=== PATIENT | female | born 1990 | race Caucasian/White ===

== ENCOUNTER 2018-01-28 21:32 | Inpatient (IN) | payer BC ==
[2018-01-28] MEDS ORDERED: Nalbuphine 10 MG/1 ML Vial IVPUSH PRN (21:56)
[2018-01-28] MEDS ORDERED: Butorphanol 1 MG/ML SDV IVPUSH PRN (21:56)
[2018-01-28] MEDS ORDERED: Water For Irrigation,Sterile 1,000 ML Container IRR PRN (21:56)
[2018-01-28] MEDS ORDERED: Terbutaline 1 MG/ML SDV SUBCUT PRN (21:56)
[2018-01-28] MEDS ORDERED: Misoprostol 25 MCG (1/4 of 100 MCG) Tab VAG PRN (21:56)
[2018-01-28] MEDS ORDERED: Misoprostol 200 MCG Tab PO PRN (21:56)
[2018-01-28] MEDS ORDERED: Sodium Chloride 0.9% 2.5 ML Syringe FLUSH PRN (21:56)
[2018-01-28] MEDS ORDERED: Carboprost Tromethamine 250 MCG/1 ML Amp IM PRN (21:56)
[2018-01-28] MEDS ORDERED: Tranexamic Acid 1,000 MG in Sodium Chloride 0.9% 100 ML IV PRN (21:56)
[2018-01-28] MEDS ORDERED: Sodium Chloride 0.9% 10 ML Syringe FLUSH PRN (21:56)
[2018-01-28] MEDS ORDERED: Ampicillin 2 GM in Sodium Chloride 0.9% 100 ML IV ONE (21:56)
[2018-01-28] MEDS ORDERED: Lidocaine 1% 50 ML MDV INJECT PRN (21:56)
[2018-01-28] MEDS ORDERED: Methylergonovine 0.2 MG/1 ML Amp IM PRN (21:56)
[2018-01-28] MEDS ORDERED: Misoprostol 25 MCG (1/4 of 100 MCG) Tab VAG SCH (22:00)
[2018-01-28] MEDS ORDERED: Oxytocin/0.9 % Sodium Chloride 30 UNIT/500 ML BAG IV SCH ×2 (22:00)
[2018-01-28] MEDS: Lactated Ringers 1,000 ML IV SCH (22:15)
[2018-01-29] MEDS ORDERED: Misoprostol 25 MCG (1/4 of 100 MCG) Tab PO ONE (07:40)
[2018-01-29] MEDS ORDERED: Misoprostol 25 MCG (1/4 of 100 MCG) Tab ONE (07:45)
[2018-01-29] MEDS: Ampicillin 1 GM in Sodium Chloride 0.9% 50 ML IV SCH ×3 (09:50→15:29)
[2018-01-29] MEDS ORDERED: fentaNYL 100 MCG/2 ML SDV ONE (13:31)
[2018-01-29] MEDS ORDERED: Ropivacaine 0.2% 2 MG/ML 20 ML SDV ONE (13:32)
--- NOTE | 2018-01-29 14:20 | PCM.PREANE ---
Preanesthetic Assessment - Procedure Proposed Procedure: labor epidural - Anesthesia/Transfusion/Family Hx Anesthesia History: Prior Anesthesia Without Reaction (t/a, epidural,wisdom teeth) Family History of Anesthesia Reaction: No Transfusion History: No Prior Transfusion(s) - Review of Systems General: No Symptoms Pulmonary: No Symptoms Cardiovascular: No Symptoms Gastrointestinal: No Symptoms Neurological: No Symptoms Other: Reports: Diabetes (gestational,blood sugars are in the 80s recently) - Physical Assessment NPO Status Date: 01/29/18 NPO Status Time: 14:19 (cl. liq) Height: 1.7 m Weight: 91.172 kg ASA Class: 2 Mental Status: Alert & Oriented x3 Airway Class: Mallampati = 1 Dentition: Reports: Normal Dentition Thyro-Mental Finger Breadths: 3 Mouth Opening Finger Breadths: 3 ROM/Head Extension: Full Lungs: Clear to Auscultation, Normal Respiratory Effort Cardiovascular: Regular Rate, Regular Rhythm - Lab Values: Laboratory Last Values WBC 10.95 K/uL (4.0-11.0) 01/28/18 21:15 RBC 4.83 M/uL (4.30-5.90) 01/28/18 21:15 Hgb 12.9 g/dL (12.0-16.0) 01/28/18 21:15 Hct 38.7 % (36.0-46.0) 01/28/18 21:15 MCV 80.1 fL (80.0-98.0) 01/28/18 21:15 MCH 26.7 pg (27.0-32.0) L 01/28/18 21:15 MCHC 33.3 g/dL (31.0-37.0) 01/28/18 21:15 RDW Std Deviation 44.4 fl (28.0-62.0) 01/28/18 21:15 RDW Coeff of Wilfred 15 % (11.0-15.0) 01/28/18 21:15 Plt Count 241 K/uL (150-400) 01/28/18 21:15 MPV 9.30 fL (7.40-12.00) 01/28/18 21:15 Nucleated RBC % 0.0 /100WBC 01/28/18 21:15 Nucleated RBCs # 0 K/uL 01/28/18 21:15 POC Glucose 80 mg/dL (60-110) 01/29/18 05:47 Blood Type B POSITIVE 01/28/18 21:15 Antibody Screen NEGATIVE 01/28/18 21:15 - Allergies Allergies/Adverse Reactions: Allergies Allergy/AdvReac Type Severity Reaction Status Date / Time No Known Allergies Allergy Verified 01/28/18 21:53 - Blood Blood Available: Yes Product(s) Available: PRBC - Anesthesia Plan Pre-Op Medication Ordered: None - Acknowledgements Anesthesia Type Planned: Epidural Pt an Appropriate Candidate for the Planned Anesthesia: Yes Alternatives and Risks of Anesthesia Discussed w Pt/Guardian: Yes Pt/Guardian Understands and Agrees with Anesthesia Plan: Yes PreAnesthesia Questionnaire - Past Health History Medical/Surgical History: Denies Medical/Surgical History HEENT History: Reports: Impaired Vision Respiratory History: Reports: Other (See Below) Other Respiratory History: T & A removal at approx 8 years BODY PRESSER History: Reports: Endocrine/Metabolic History: Reports: Diabetes, Gestational - Past Surgical History HEENT Surgical History: Reports: Tonsillectomy - SUBSTANCE USE Smoking Status *Q: Never Smoker Tobacco Use Within Last Twelve Months: No Second Hand Smoke Exposure: No Recreational Drug Use History: No - HOME MEDS Home Medications: Home Meds Acetaminophen [Tylenol Extra Strength] 1,000 mg PO Q4H PRN #30 tablet 12/31/15 [ Rx] Aspirin [Adult Low Dose Aspirin EC] 81 mg PO 01/28/18 [History] Vit W-Ca,Fe,FA(<1 mg) [ Vitamins] 1 tab PO DAILY 01/28/18 [ History] - CURRENT (IN HOUSE) MEDS Current Meds: Current Medications Butorphanol Tartrate (Stadol) 1 mg IVPUSH Q1H PRN PRN Reason: Pain Carboprost Tromethamine (Hemabate Ds) 250 mcg IM ASDIRECTED PRN PRN Reason: Post Hemorrhage Lactated Ringer's (Ringers, Lactated) 1,000 mls @ 150 mls/hr IV ASDIRECTED KARON Last Admin: 01/28/18 22:15 Dose: 999 mls/hr Oxytocin/Sodium Chloride (Oxytocin 30 Unit/500 Ml-Ns) 30 unit in 500 mls @ 500 mls/hr IV TITRATE KARON Oxytocin/Sodium Chloride (Oxytocin 30 Unit/500 Ml-Ns) 30 unit in 500 mls @ 2 mls/hr IV TITRATE K[facility]ON; Protocol Last Titration: 01/29/18 13:07 Dose: 6 munits/min, 6 mls/hr Tranexamic Acid 1,000 mg/ (Sodium Chloride) 110 mls @ 660 mls/hr IV ONETIME PRN PRN Reason: Bleeding Ampicillin Sodium 1 gm/ Sodium (Chloride) 50 mls @ 100 mls/hr IV Q4H [facility] Last Admin: 01/29/18 11:34 Dose: 100 mls/hr Lidocaine HCl (Xylocaine 1%) 50 ml INJECT .ONCE PRN PRN Reason: Laceration repair Methylergonovine Maleate (Methergine) 0.2 mg IM ASDIRECTED PRN PRN Reason: Post Hemorrhage Misoprostol (Cytotec) 200 mcg PO .ONCE PRN PRN Reason: Post Hemorrhage Misoprostol (Cytotec) 25 mcg VAG .ONCE KARON Last Admin: 01/28/18 23:35 Dose: 25 mcg Misoprostol (Cytotec) 25 mcg VAG Q4H PRN PRN Reason: Cervical Ripening Nalbuphine HCl (Nubain) 10 mg IVPUSH Q1H PRN PRN Reason: Pain (severe 7-10) Sodium Chloride (Saline Flush) 10 ml FLUSH ASDIRECTED PRN PRN Reason: Keep Vein Open Sodium Chloride (Saline Flush) 2.5 ml FLUSH ASDIRECTED PRN PRN Reason: Keep Vein Open Sterile Water (Sterile Water For Irrigation) 1,000 ml IRR ASDIRECTED PRN PRN Reason: delivery Terbutaline Sulfate (Brethine) 0.25 mg SUBCUT ASDIRECTED PRN PRN Reason: Tacysystole Discontinued Medications Fentanyl (Sublimaze) Confirm Administered Dose 100 mcg .ROUTE .STK-MED ONE Stop: 01/29/18 13:32 Ampicillin Sodium 2 gm/ Sodium (Chloride) 100 mls @ 200 mls/hr IV ONETIME ONE Stop: 01/28/18 22:25 Last Admin: 01/28/18 23:38 Dose: 200 mls/hr Fentanyl/Bupivacaine HCl (Whsxsazp-Gknvr-Jj 2 Mcg/Ml-0.125%) Confirm Administered Dose 100 mls @ as directed EP .STK-MED ONE Stop: 01/29/18 13:32 Misoprostol (Cytotec) Confirm Administered Dose 25 mcg .ROUTE .STK-MED ONE Stop: 01/29/18 07:46 Last Admin: 01/29/18 09:51 Dose: Not Given Misoprostol (Cytotec) 25 mcg PO ONETIME ONE Stop: 01/29/18 07:41 Last Admin: 01/29/18 09:52 Dose: Not Given Ropivacaine (Naropin 0.2%) Confirm Administered Dose 20 ml .ROUTE .STK-MED ONE Stop: 01/29/18 13:33
--- NOTE | 2018-01-29 14:28 | PCM.PRNOTE ---
- Free Text/Narrative Note: called to see patient for placement of epidural. Patient identified and health history and consent reviewed. Discussed risks including nerve pain, nerve damage , bleeding and infection. Pt agrees to proceed. sitting up, sterile betadine prep times 3. 1% lidocaine injected SQ at L3, #17 touhy advanced with os found at 3 cm. Needle redirected ANNIE saline no heme, no paresthesia. catheter easily placed approximately 7 cm. catheter taped at 14cm skin. test dose 3 ml 1.5% lidocaine with epinephrine 1:200,000 negative reaction. bolus of 0.2% ropivicaine with 100 mcg fentanyl given 8 ml over 10 minutes. No complications notedpain score now 0/10 with level noted to be t 10 bilat with cold sensation. 0.125% bupivicaine with fentanyl 2 mcg/ml started at 9 ml/hr with PCEA bolus of 6ml every 10 minutes, hourly of 32 ml. No complications noted
[2018-01-29] MEDS: Lactated Ringers 1,000 ML IV SCH (15:00)
[2018-01-29] MEDS ORDERED: Acetaminophen 500 MG Tab PO PRN ×2 (18:13)
[2018-01-29] MEDS ORDERED: Bisacodyl 10 MG Supp RECTAL PRN (18:13)
[2018-01-29] MEDS ORDERED: oxyCODONE 5 MG Tab PO PRN (18:13)
[2018-01-29] MEDS ORDERED: Lanolin 100% Cream 7 GM Tube TOP PRN (18:13)
[2018-01-29] MEDS ORDERED: Ibuprofen 800 MG Tab PO PRN (18:13)
[2018-01-29] MEDS ORDERED: Docusate Sodium 100 MG Cap PO PRN (18:13)
[2018-01-29] MEDS ORDERED: Ibuprofen 400 MG Tab PO PRN (18:13)
[2018-01-29] MEDS ORDERED: Benzocaine/Menthol 20%-0.5% Spray 78 GM Cannister TOP PRN (18:13)
[2018-01-29] MEDS ORDERED: Witch Hazel Medicated Pads 40/Jar TOP PRN (18:13)
--- NOTE | 2018-01-29 19:43 | PCM48HPAN ---
Post Anesthesia Note - EVALUATION WITHIN 48HRS OF ANESTHETIC Vital Signs in Normal Range: Yes Patient Participated in Evaluation: Yes Respiratory Function Stable: Yes Airway Patent: Yes Cardiovascular Function Stable: Yes Hydration Status Stable: Yes Pain Control Satisfactory: Yes Nausea and Vomiting Control Satisfactory: Yes Mental Status Recovered: Yes
--- NOTE | 2018-01-30 08:18 | OR ---
SURGEON: Sujey Carter MD DATE OF PROCEDURE: 01/29/2018 PREOPERATIVE DIAGNOSES: 1. Term at 39 weeks and 3 days. 2. Oligohydramnios. 3. Gestational diabetes, diet controlled. POSTOPERATIVE DIAGNOSES: 1. Term at 39 weeks and 3 days. 2. Oligohydramnios. 3. Gestational diabetes, diet controlled. 4. Delivered. PROCEDURES: 1. Spontaneous vaginal delivery. 2. Repair of perineal laceration. ANESTHESIA: Epidural. ESTIMATED BLOOD LOSS: 200 mL. COMPLICATIONS: None. DISPOSITION: Mother and baby stable in Labor and Delivery room, bonding. FINDINGS: Female infant, weight pending, scores of 8 and 8 at 1 and 5 minutes respectively. Grossly normal placenta with 3-vessel cord. First-degree vaginal laceration. PROCEDURE DETAILS: The patient is a 27-year-old, G2, P1, who was admitted overnight at 38 weeks and 1 day gestation for induction of labor secondary to oligohydramnios, found during her routine visit yesterday, with a biophysical profile of 8/ 10. Her is also complicated by gestational diabetes, adequately controlled on diet. Her GBS status was positive. On admission, she received two doses of Cytotec 25 mcg for cervical ripening, and oxytocin titration was commenced later this morning. Prophylactic Ampicillin was given for GBS prophylaxis. Artificial rupture of membranes was performed around 12:30 this afternoon. At that time, she was 3 to 4 cm dilated, 80% effaced, station -2. Scanty amount of clear fluid was returned. An IUPC was inserted in case it was needed at a later stage for amnioinfusion if indicated. At that time, her oxytocin was at 4 milliunits per minute. She made steady progress and became fully dilated little after 5:00 this evening, on a maximum dose of Pitocin of 10 milliunits per minute. With increasing rectal pressure, active second stage was commenced, she pushed quite well, bringing the baby's head down to a +4 station and was set up for delivery in a modified dorsolithotomy position. heart racing remained a category I. Her admission blood sugar was normal. She pushed for approximately 10 minutes and had a spontaneous vaginal delivery of a live female in direct occipital anterior position, loose nuchal cord x, easily reduced with clear amniotic fluid at delivery. Anterior and posterior shoulders and the rest of the baby were delivered without difficulty. The baby was vigorous at , delivered onto the maternal abdomen. Delayed cord clamping was observed, and the cord was subsequently cut by the father of the baby. With delivery of the , oxytocin infusion was changed to titration for active management of third stage of labor. Cord blood and gas samples were obtained. The placenta was delivered by controlled cord traction, appeared to be complete and intact. Examination of the perineum revealed a small first-degree vaginal laceration, which was repaired with 2-0 Polysorb and was hemostatic post repair. Uterine massage was performed. The uterus was found to contract with massage but boggy inbetween with little trickles of blood vaginally. Some clots were evacuated from the lower uterine segment. Also, of note was that the patient's oxytocin infusion was not titrating as fast as it should for , so she received one dose of methargen 0.25 mg to further enhance uterine contraction. After this was performed, the trickle subsided, and the uterus was well contracted. The patient tolerated the procedure well. Sponge, instrument, and needle counts were correct at the end of the delivery. ADUMVIV / MODL /[id number] MTDD
--- NOTE | 2018-01-30 09:15 | PCM.PNPP ---
- General Info Date of Service: 01/30/18 Functional Status: Reports: Pain Controlled, Tolerating Diet, Ambulating, Urinating - Review of Systems General: Denies: Fever, Malaise HEENT: Denies: Headaches, Visual Changes Pulmonary: Denies: Shortness of Breath, Pleuritic Chest Pain Cardiovascular: Denies: Chest Pain, Palpitations, Dyspnea on Exertion Gastrointestinal: Denies: Abdominal Pain Genitourinary: Denies: Dysuria, Incontinence - General Info Date of Service: 01/30/18 - Patient Data Vital Signs - Most Recent: Last Vital Signs Temp 36.6 C 01/30/18 04:15 Pulse 80 01/30/18 04:15 Resp 18 01/30/18 04:15 BP 118/80 01/30/18 04:15 Pulse Ox 96 01/30/18 04:15 Weight - Most Recent: 201 lb Lab Results - Last 24 Hours: Laboratory Results - last 24 hr 01/29/18 01/30/18 Range/Units 17:46 05:10 Hgb 11.6 L (12.0-16.0) g/dL Hct 35.5 L (36.0-46.0) % Cord ABG pH 7.270 (7.18-7.38) Cord ABG Base Excess -4 (-10--2) Cord VBG pH 7.405 (7.25-7.45) Cord VBG Base Excess -3 (-10--2) Med Orders - Current: Current Medications Acetaminophen (Tylenol Extra Strength) 500 mg PO Q4H PRN PRN Reason: Pain Acetaminophen (Tylenol Extra Strength) 1,000 mg PO Q4H PRN PRN Reason: Pain Benzocaine/Menthol (Dermoplast Pain Relief 20%-0.5% [place]) 0 gm TOP ASDIRECTED PRN PRN Reason: Perineal Comfort Measure Last Admin: 01/29/18 20:47 Dose: 1 canister Bisacodyl (Dulcolax) 10 mg RECTAL .ONCE PRN PRN Reason: Constipation Docusate Sodium (Colace) 100 mg PO BID PRN PRN Reason: Constipation Emollient Ointment (Lansinoh Hpa) 0 gm TOP ASDIRECTED PRN PRN Reason: Sore Nipples Last Admin: 01/29/18 20:47 Dose: 1 tube Ibuprofen (Motrin) 400 mg PO Q4H PRN PRN Reason: Pain Ibuprofen (Motrin) 800 mg PO Q6H PRN PRN Reason: Pain Last Admin: 01/29/18 20:47 Dose: 800 mg Oxycodone HCl (Oxycodone) 5 mg PO Q2H PRN PRN Reason: Pain Witch Rupali (Tucks) 1 pad TOP ASDIRECTED PRN PRN Reason: comfort care Last Admin: 01/29/18 20:47 Dose: 1 tub Discontinued Medications Butorphanol Tartrate (Stadol) 1 mg IVPUSH Q1H PRN PRN Reason: Pain Carboprost Tromethamine (Hemabate Ds) 250 mcg IM ASDIRECTED PRN PRN Reason: Post Hemorrhage Fentanyl (Sublimaze) Confirm Administered Dose 100 mcg .ROUTE .STK-MED ONE Stop: 01/29/18 13:32 Last Admin: 01/29/18 21:23 Dose: Not Given Ampicillin Sodium 2 gm/ Sodium (Chloride) 100 mls @ 200 mls/hr IV ONETIME ONE Stop: 01/28/18 22:25 Last Admin: 01/28/18 23:38 Dose: 200 mls/hr Lactated Ringer's (Ringers, Lactated) 1,000 mls @ 150 mls/hr IV ASDIRECTED KARON Last Admin: 01/29/18 15:00 Dose: 500 mls/hr Oxytocin/Sodium Chloride (Oxytocin 30 Unit/500 Ml-Ns) 30 unit in 500 mls @ 500 mls/hr IV TITRATE KARON Oxytocin/Sodium Chloride (Oxytocin 30 Unit/500 Ml-Ns) 30 unit in 500 mls @ 2 mls/hr IV TITRATE [facility]; Protocol Last Titration: 01/29/18 17:05 Dose: 10 munits/min, 10 mls/hr Tranexamic Acid 1,000 mg/ (Sodium Chloride) 110 mls @ 660 mls/hr IV ONETIME PRN PRN Reason: Bleeding Ampicillin Sodium 1 gm/ Sodium (Chloride) 50 mls @ 100 mls/hr IV Q4H [facility] Last Admin: 01/29/18 15:29 Dose: 100 mls/hr Fentanyl/Bupivacaine HCl (Toshnrim-Glqed-Rf 2 Mcg/Ml-0.125%) Confirm Administered Dose 100 mls @ as directed EP .STK-MED ONE Stop: 01/29/18 13:32 Last Admin: 01/29/18 21:21 Dose: Not Given Lidocaine HCl (Xylocaine 1%) 50 ml INJECT .ONCE PRN PRN Reason: Laceration repair Methylergonovine Maleate (Methergine) 0.2 mg IM ASDIRECTED PRN PRN Reason: Post Hemorrhage Last Admin: 01/29/18 18:10 Dose: 0.2 mg Misoprostol (Cytotec) 200 mcg PO .ONCE PRN PRN Reason: Post Hemorrhage Misoprostol (Cytotec) 25 mcg VAG .ONCE KARON Last Admin: 01/28/18 23:35 Dose: 25 mcg Misoprostol (Cytotec) 25 mcg VAG Q4H PRN PRN Reason: Cervical Ripening Misoprostol (Cytotec) Confirm Administered Dose 25 mcg .ROUTE .STK-MED ONE Stop: 01/29/18 07:46 Last Admin: 01/29/18 09:51 Dose: Not Given Misoprostol (Cytotec) 25 mcg PO ONETIME ONE Stop: 01/29/18 07:41 Last Admin: 01/29/18 09:52 Dose: Not Given Nalbuphine HCl (Nubain) 10 mg IVPUSH Q1H PRN PRN Reason: Pain (severe 7-10) Ropivacaine (Naropin 0.2%) Confirm Administered Dose 20 ml .ROUTE .STK-MED ONE Stop: 01/29/18 13:33 Last Admin: 01/29/18 21:23 Dose: Not Given Sodium Chloride (Saline Flush) 10 ml FLUSH ASDIRECTED PRN PRN Reason: Keep Vein Open Sodium Chloride (Saline Flush) 2.5 ml FLUSH ASDIRECTED PRN PRN Reason: Keep Vein Open Sterile Water (Sterile Water For Irrigation) 1,000 ml IRR ASDIRECTED PRN PRN Reason: delivery Last Admin: 01/29/18 17:00 Dose: 1,000 ml Terbutaline Sulfate (Brethine) 0.25 mg SUBCUT ASDIRECTED PRN PRN Reason: Tacysystole - Interaction Disposition, : in Room with Family Interaction: Holding Infant Feeding: Attempted ; Nursed Fair/Poor (supplementing), Continues to Breastfeed Support Person: - Recovery Exam Fundal Tone: Firm Fundal Level: 1 Fingerbreadths Below Umbilicus Fundal Placement: Midline Lochia Amount: Scant Lochia Color: Rubra/Red Perineum Description: Other (see below) Other Perinuem Description: 1st degree laceration Episiotomy/Laceration: Approximated Bladder Status: Voiding - Exam General: Alert, Oriented HEENT: Pupils Equal Lungs: Clear to Auscultation, Normal Respiratory Effort Cardiovascular: Regular Rate, Regular Rhythm GI/Abdominal Exam: Normal Bowel Sounds Extremities: Non-Tender, Pedal Edema Skin: Warm Psy/Mental Status: Alert, Normal Affect, Normal Mood - Problem List & Annotations (1) Vaginal delivery SNOMED Code(s): 974000352 Code(s): O80 - ENCOUNTER FOR FULL-TERM UNCOMPLICATED DELIVERY Status: Acute Current Visit: No (2) Gestational diabetes mellitus (GDM), delivered SNOMED Code(s): 34332260 Code(s): O24.429 - GESTATIONAL DIABETES MELLITUS IN CHILDBIRTH, UNSP CONTROL Status: Acute Current Visit: Yes - Problem List Review Problem List Initiated/Reviewed/Updated: Yes - My Orders Last 24 Hours: My Active Orders 01/29/18 18:13 Patient Status [ADT] Routine May Shower [RC] ASDIRECTED Up ad Hoda [RC] ASDIRECTED Vital Signs [RC] PER UNIT ROUTINE Acetaminophen [Tylenol Extra Strength] 1,000 mg PO Q4H PRN Acetaminophen [Tylenol Extra Strength] 500 mg PO Q4H PRN Benzocaine/Menthol [Dermoplast Pain Relief 20%-0.5% [place]] 0 gm TOP ASDIRECTED PRN Bisacodyl [Dulcolax] 10 mg RECTAL .ONCE PRN Docusate Sodium [Colace] 100 mg PO BID PRN Ibuprofen [Motrin] 400 mg PO Q4H PRN Ibuprofen [Motrin] 800 mg PO Q6H PRN Lanolin [Lansinoh HPA] See Dose Instructions TOP ASDIRECTED PRN Witch Rupali [Tucks] 1 pad TOP ASDIRECTED PRN oxyCODONE 5 mg PO Q2H PRN Assess Lochia [WOMSER] Per Unit Routine Assess Uterine Involution [WOMSER] Per Unit Routine Breast Pump [WOMSER] Per Unit Routine Peripheral IV Discontinue [OM.PC] Routine Resuscitation Status Routine 01/29/18 18:14 Perineal Care [OM.PC] Per Unit Routine 01/30/18 Breakfast Regular Diet [DIET] - Assessment Assessment:: PPD#1 s/p , stable and afebrile Considering discharge later this evening id improves - Plan Plan:: Patient may be discharged later this evening is baby is doing well with feeding Discharge instructions were reviewed Nothing in the vagina in 6 weeks Bleeding and infection precautions discussed S/S of blues vs depression were reviewed Follow up appt in 6 weeks
--- NOTE | 2018-01-31 08:17 | PCM.PNPP ---
<Janie Terrazas - Last Filed: 01/31/18 08:14> - General Info Date of Service: 01/31/18 Functional Status: Reports: Pain Controlled, Tolerating Diet, Ambulating, Urinating - Review of Systems General: Denies: Fever, Weakness, Fatigue Pulmonary: Denies: Shortness of Breath, Pleuritic Chest Pain, Cough Cardiovascular: Denies: Chest Pain, Palpitations, Dyspnea on Exertion Gastrointestinal: Denies: Abdominal Pain Genitourinary: Denies: Dysuria - General Info Date of Service: 01/31/18 - Patient Data Vital Signs - Most Recent: Last Vital Signs Temp 36.4 C 01/30/18 20:00 Pulse 80 01/30/18 20:00 Resp 20 01/30/18 20:00 BP 121/82 01/30/18 20:00 Pulse Ox 99 01/30/18 20:00 Weight - Most Recent: 201 lb Med Orders - Current: Current Medications Acetaminophen (Tylenol Extra Strength) 500 mg PO Q4H PRN PRN Reason: Pain Acetaminophen (Tylenol Extra Strength) 1,000 mg PO Q4H PRN PRN Reason: Pain Benzocaine/Menthol (Dermoplast Pain Relief 20%-0.5% [place]) 0 gm TOP ASDIRECTED PRN PRN Reason: Perineal Comfort Measure Last Admin: 01/29/18 20:47 Dose: 1 canister Bisacodyl (Dulcolax) 10 mg RECTAL .ONCE PRN PRN Reason: Constipation Docusate Sodium (Colace) 100 mg PO BID PRN PRN Reason: Constipation Last Admin: 01/30/18 21:40 Dose: 100 mg Emollient Ointment (Lansinoh Hpa) 0 gm TOP ASDIRECTED PRN PRN Reason: Sore Nipples Last Admin: 01/29/18 20:47 Dose: 1 tube Ibuprofen (Motrin) 400 mg PO Q4H PRN PRN Reason: Pain Ibuprofen (Motrin) 800 mg PO Q6H PRN PRN Reason: Pain Last Admin: 01/29/18 20:47 Dose: 800 mg Oxycodone HCl (Oxycodone) 5 mg PO Q2H PRN PRN Reason: Pain Witch Rupali (Tucks) 1 pad TOP ASDIRECTED PRN PRN Reason: comfort care Last Admin: 01/29/18 20:47 Dose: 1 tub Discontinued Medications Butorphanol Tartrate (Stadol) 1 mg IVPUSH Q1H PRN PRN Reason: Pain Carboprost Tromethamine (Hemabate Ds) 250 mcg IM ASDIRECTED PRN PRN Reason: Post Hemorrhage Fentanyl (Sublimaze) Confirm Administered Dose 100 mcg .ROUTE .STK-MED ONE Stop: 01/29/18 13:32 Last Admin: 01/29/18 21:23 Dose: Not Given Ampicillin Sodium 2 gm/ Sodium (Chloride) 100 mls @ 200 mls/hr IV ONETIME ONE Stop: 01/28/18 22:25 Last Admin: 01/28/18 23:38 Dose: 200 mls/hr Lactated Ringer's (Ringers, Lactated) 1,000 mls @ 150 mls/hr IV ASDIRECTED KARON Last Admin: 01/29/18 15:00 Dose: 500 mls/hr Oxytocin/Sodium Chloride (Oxytocin 30 Unit/500 Ml-Ns) 30 unit in 500 mls @ 500 mls/hr IV TITRATE KARON Oxytocin/Sodium Chloride (Oxytocin 30 Unit/500 Ml-Ns) 30 unit in 500 mls @ 2 mls/hr IV TITRATE KARON; Protocol Last Titration: 01/29/18 17:05 Dose: 10 munits/min, 10 mls/hr Tranexamic Acid 1,000 mg/ (Sodium Chloride) 110 mls @ 660 mls/hr IV ONETIME PRN PRN Reason: Bleeding Ampicillin Sodium 1 gm/ Sodium (Chloride) 50 mls @ 100 mls/hr IV Q4H [facility] Last Admin: 01/29/18 15:29 Dose: 100 mls/hr Fentanyl/Bupivacaine HCl ([id number]-Dxawo-Xe 2 Mcg/Ml-0.125%) Confirm Administered Dose 100 mls @ as directed EP .STK-MED ONE Stop: 01/29/18 13:32 Last Admin: 01/29/18 21:21 Dose: Not Given Lidocaine HCl (Xylocaine 1%) 50 ml INJECT .ONCE PRN PRN Reason: Laceration repair Methylergonovine Maleate (Methergine) 0.2 mg IM ASDIRECTED PRN PRN Reason: Post Hemorrhage Last Admin: 01/29/18 18:10 Dose: 0.2 mg Misoprostol (Cytotec) 200 mcg PO .ONCE PRN PRN Reason: Post Hemorrhage Misoprostol (Cytotec) 25 mcg VAG .ONCE KARON Last Admin: 01/28/18 23:35 Dose: 25 mcg Misoprostol (Cytotec) 25 mcg VAG Q4H PRN PRN Reason: Cervical Ripening Misoprostol (Cytotec) Confirm Administered Dose 25 mcg .ROUTE .STK-MED ONE Stop: 01/29/18 07:46 Last Admin: 01/29/18 09:51 Dose: Not Given Misoprostol (Cytotec) 25 mcg PO ONETIME ONE Stop: 01/29/18 07:41 Last Admin: 01/29/18 09:52 Dose: Not Given Nalbuphine HCl (Nubain) 10 mg IVPUSH Q1H PRN PRN Reason: Pain (severe 7-10) Ropivacaine (Naropin 0.2%) Confirm Administered Dose 20 ml .ROUTE .STK-MED ONE Stop: 01/29/18 13:33 Last Admin: 01/29/18 21:23 Dose: Not Given Sodium Chloride (Saline Flush) 10 ml FLUSH ASDIRECTED PRN PRN Reason: Keep Vein Open Sodium Chloride (Saline Flush) 2.5 ml FLUSH ASDIRECTED PRN PRN Reason: Keep Vein Open Sterile Water (Sterile Water For Irrigation) 1,000 ml IRR ASDIRECTED PRN PRN Reason: delivery Last Admin: 01/29/18 17:00 Dose: 1,000 ml Terbutaline Sulfate (Brethine) 0.25 mg SUBCUT ASDIRECTED PRN PRN Reason: Tacysystole - Interaction Disposition, : in Room with Family Interaction: Holding Infant Feeding: Attempted ; Nursed Fair/Poor (supplementing), Continues to Breastfeed Support Person: - Recovery Exam Fundal Tone: Firm Fundal Level: 1 Fingerbreadths Below Umbilicus Fundal Placement: Midline Lochia Amount: Scant Lochia Color: Rubra/Red Perineum Description: Intact, Minimal Bruising/Swelling, Hemorrhoids, Other ( see below) Other Perinuem Description: 1st degree laceration Episiotomy/Laceration: None Bladder Status: Voiding - Exam General: Alert, Oriented Neck: Supple Lungs: Clear to Auscultation, Normal Respiratory Effort Cardiovascular: Regular Rate, Regular Rhythm GI/Abdominal Exam: Normal Bowel Sounds, Soft, No Distention, Pelvis Stable Extremities: Normal Inspection Skin: Warm, Dry - Problem List & Annotations (1) Vaginal delivery SNOMED Code(s): 410313852 Code(s): O80 - ENCOUNTER FOR FULL-TERM UNCOMPLICATED DELIVERY Status: Acute - Problem List Review Problem List Initiated/Reviewed/Updated: Yes - Assessment Assessment:: PPD#2 s/p , stable and afebrile. Discharge home today. - Plan Plan:: Discharge instructions were reviewed. Nothing in the vagina in 6 weeks. Bleeding and infection precautions discussed. Can use OTC ibuprofen/tylenol as needed for pain. Follow up appt in 6 weeks <MannySujey perez - Last Filed: 01/31/18 12:09> - Patient Data Vital Signs - Most Recent: Last Vital Signs Temp 36.5 C 01/31/18 08:00 Pulse 78 01/31/18 08:00 Resp 16 01/31/18 08:00 BP 120/88 01/31/18 08:00 Pulse Ox 100 01/31/18 08:00 Med Orders - Current: Current Medications Discontinued Medications Acetaminophen (Tylenol Extra Strength) 500 mg PO Q4H PRN PRN Reason: Pain Acetaminophen (Tylenol Extra Strength) 1,000 mg PO Q4H PRN PRN Reason: Pain Benzocaine/Menthol (Dermoplast Pain Relief 20%-0.5% [place]) 0 gm TOP ASDIRECTED PRN PRN Reason: Perineal Comfort Measure Last Admin: 01/29/18 20:47 Dose: 1 canister Bisacodyl (Dulcolax) 10 mg RECTAL .ONCE PRN PRN Reason: Constipation Butorphanol Tartrate (Stadol) 1 mg IVPUSH Q1H PRN PRN Reason: Pain Carboprost Tromethamine (Hemabate Ds) 250 mcg IM ASDIRECTED PRN PRN Reason: Post Hemorrhage Docusate Sodium (Colace) 100 mg PO BID PRN PRN Reason: Constipation Last Admin: 01/30/18 21:40 Dose: 100 mg Emollient Ointment (Lansinoh Hpa) 0 gm TOP ASDIRECTED PRN PRN Reason: Sore Nipples Last Admin: 01/29/18 20:47 Dose: 1 tube Fentanyl (Sublimaze) Confirm Administered Dose 100 mcg .ROUTE .STK-MED ONE Stop: 01/29/18 13:32 Last Admin: 01/29/18 21:23 Dose: Not Given Ampicillin Sodium 2 gm/ Sodium (Chloride) 100 mls @ 200 mls/hr IV ONETIME ONE Stop: 01/28/18 22:25 Last Admin: 01/28/18 23:38 Dose: 200 mls/hr Lactated Ringer's (Ringers, Lactated) 1,000 mls @ 150 mls/hr IV ASDIRECTED KARON Last Admin: 01/29/18 15:00 Dose: 500 mls/hr Oxytocin/Sodium Chloride (Oxytocin 30 Unit/500 Ml-Ns) 30 unit in 500 mls @ 500 mls/hr IV TITRATE KARON Oxytocin/Sodium Chloride (Oxytocin 30 Unit/500 Ml-Ns) 30 unit in 500 mls @ 2 mls/hr IV TITRATE KARON; Protocol Last Titration: 01/29/18 17:05 Dose: 10 munits/min, 10 mls/hr Tranexamic Acid 1,000 mg/ (Sodium Chloride) 110 mls @ 660 mls/hr IV ONETIME PRN PRN Reason: Bleeding Ampicillin Sodium 1 gm/ Sodium (Chloride) 50 mls @ 100 mls/hr IV Q4H [facility]ARON Last Admin: 01/29/18 15:29 Dose: 100 mls/hr Fentanyl/Bupivacaine HCl (Ghzwozkm-Jrlil-Tj 2 Mcg/Ml-0.125%) Confirm Administered Dose 100 mls @ as directed EP .STK-MED ONE Stop: 01/29/18 13:32 Last Admin: 01/29/18 21:21 Dose: Not Given Ibuprofen (Motrin) 400 mg PO Q4H PRN PRN Reason: Pain Ibuprofen (Motrin) 800 mg PO Q6H PRN PRN Reason: Pain Last Admin: 01/29/18 20:47 Dose: 800 mg Lidocaine HCl (Xylocaine 1%) 50 ml INJECT .ONCE PRN PRN Reason: Laceration repair Methylergonovine Maleate (Methergine) 0.2 mg IM ASDIRECTED PRN PRN Reason: Post Hemorrhage Last Admin: 01/29/18 18:10 Dose: 0.2 mg Misoprostol (Cytotec) 200 mcg PO .ONCE PRN PRN Reason: Post Hemorrhage Misoprostol (Cytotec) 25 mcg VAG .ONCE KARON Last Admin: 01/28/18 23:35 Dose: 25 mcg Misoprostol (Cytotec) 25 mcg VAG Q4H PRN PRN Reason: Cervical Ripening Misoprostol (Cytotec) Confirm Administered Dose 25 mcg .ROUTE .STK-MED ONE Stop: 01/29/18 07:46 Last Admin: 01/29/18 09:51 Dose: Not Given Misoprostol (Cytotec) 25 mcg PO ONETIME ONE Stop: 01/29/18 07:41 Last Admin: 01/29/18 09:52 Dose: Not Given Nalbuphine HCl (Nubain) 10 mg IVPUSH Q1H PRN PRN Reason: Pain (severe 7-10) Oxycodone HCl (Oxycodone) 5 mg PO Q2H PRN PRN Reason: Pain Ropivacaine (Naropin 0.2%) Confirm Administered Dose 20 ml .ROUTE .STK-MED ONE Stop: 01/29/18 13:33 Last Admin: 01/29/18 21:23 Dose: Not Given Sodium Chloride (Saline Flush) 10 ml FLUSH ASDIRECTED PRN PRN Reason: Keep Vein Open Sodium Chloride (Saline Flush) 2.5 ml FLUSH ASDIRECTED PRN PRN Reason: Keep Vein Open Sterile Water (Sterile Water For Irrigation) 1,000 ml IRR ASDIRECTED PRN PRN Reason: delivery Last Admin: 01/29/18 17:00 Dose: 1,000 ml Terbutaline Sulfate (Brethine) 0.25 mg SUBCUT ASDIRECTED PRN PRN Reason: Tacysystole Witch Rupali (Tucks) 1 pad TOP ASDIRECTED PRN PRN Reason: comfort care Last Admin: 01/29/18 20:47 Dose: 1 tub - Problem List & Annotations (1) Vaginal delivery SNOMED Code(s): 266668843 Code(s): O80 - ENCOUNTER FOR FULL-TERM UNCOMPLICATED DELIVERY Status: Acute (2) Gestational diabetes mellitus (GDM), delivered SNOMED Code(s): 33100080 Code(s): O24.429 - GESTATIONAL DIABETES MELLITUS IN CHILDBIRTH, UNSP CONTROL Status: Acute - Assessment Assessment:: Agree with above - Plan Plan:: Agree with above
[2018-01-31 08:28] VITALS: BP 120/88
== END 2018-01-31 10:50 | disposition home or self-care (01) | DRG 540 ==
LOC: MW.OB 21:32 → MW.OBCHECK 21:32 → MW.OB 22:00 → OBSVTOIN 01-29 17:46
PROVIDERS: ADMIT Obstetrics & Gynecology; ATTEND Obstetrics & Gynecology
PROC: 10D00Z1 Extraction of Products of Conception, Low, Open Approach (ICD-10-PCS; principal; 2018-01-29)
PROC: 3E0P7VZ Introduction of Hormone into Female Reproductive, Via Natural or Artificial Opening (ICD-10-PCS; 2018-01-29)
PROC: 0HQ9XZZ Repair Perineum Skin, External Approach (ICD-10-PCS; 2018-01-29)
DX: O41.03X0 Oligohydramnios, third trimester, not applicable or unspecified (principal); O24.420 Gestational diabetes mellitus in childbirth, diet controlled; O70.0 First degree perineal laceration during delivery; Z3A.39 39 weeks gestation of pregnancy; Z37.0 Single live birth
CPT/HCPCS: 36415; 51702; 59025; 59409; 82803; 82962; 85014; 85018; 85027; 86850; 86900; 86901; 88307; A9270-GY; J0290; J2210; J2590; J2795; J3010; J7030; J7050; J7120